=== PATIENT | male | born 1955 | race Hispanic/Latino ===

== ENCOUNTER 2016-08-05 21:27 | Inpatient (IN) | payer MEDICAID, OTHER ==
[2016-08-05 21:27] VITALS: BMI 20.9
[2016-08-05 22:49] LABS: BASO # 0.1 K/uL (0.0-0.2); EOS # 0.1 K/uL (0.0-0.7); EOS % 1.6 % (0.0-4.0); HEMATOCRIT 40.5 % (35.0-51.0); LYMPH # 1.9 K/uL (1.0-4.3); MEAN CELL VOLUME 83.3 fL (80.0-94.0); MEAN CORPUSCULAR HEMOGLOBIN 27.3 pg (27.0-31.0); MEAN CORPUSCULAR HGB CONC 32.7 g/dL (33.0-37.0); MEAN PLATELET VOLUME 8.9 fL (7.2-11.7); MONO # 0.7 K/uL (0.0-0.8); MONO % 9.1 % (0.0-10.0); RED CELL DISTRIBUTION WIDTH 14.4 % (11.5-14.5); WHITE BLOOD COUNT 7.8 K/uL (4.8-10.8)
[2016-08-05 22:57] LABS: CHLORIDE 106 mmol/L (98-107); SODIUM 143 mmol/L (132-148)
[2016-08-05 22:59] LABS: ALB/GLOB RATIO 1.3 (1.0-2.1); ALKALINE PHOSPHATASE 54 U/L (38-126); AST/SGOT 19 U/L (17-59); BILIRUBIN,TOTAL 0.4 mg/dL (0.2-1.3); BLOOD UREA NITROGEN 18 mg/dL (9-20); CARBON DIOXIDE 25 mmol/L (22-30); GFR AFRICAN-AMERICAN 58; TOTAL PROTEIN 7.5 g/dL (6.3-8.3)
[2016-08-05 23:00] LABS: ALCOHOL SERUM < 10 mg/dl (0-10); ALT/SGPT 18 U/L (21-72); CALCIUM 9.2 mg/dl (8.6-10.4); GLUCOSE,RANDOM 82 mg/dL (75-110)
[2016-08-05 23:08] LABS: RBC URINE 4 /hpf (0-3); URINE BILIRUBIN NEGATIVE (NEGATIVE); URINE BLOOD NEGATIVE (NEGATIVE); URINE COLOR Yellow (YELLOW); URINE GLUCOSE (UA) NORMAL (Normal); URINE KETONE NEGATIVE (NEGATIVE); URINE LEUKOCYTE ESTERASE 1+ Leu/uL (Negative); URINE PROTEIN 1+ mg/dL (NEGATIVE); WBC URINE 15 /hpf (0-5)
[2016-08-05 23:14] LABS: URINE BACTERIA FEW (<OCC)
--- NOTE | 2016-08-05 23:20 | C.PDOC ---
History Of Present Illness 61 year old patient presents to the ED requesting detox from alcohol, cocaine, and heroin. He admits his last use of all three was earlier today. Patient is pre-screened. Patient was contacted to come in for admission. He denies any symptoms or medical complaints at this time. Time Seen by Provider: 08/05/16 22:20 Chief Complaint (Nursing): Substance Abuse History Per: Patient History/Exam Limitations: no limitations Onset/Duration Of Symptoms: Other Current Symptoms Are (Timing): Still Present Suicide/Self Injury Attempted (Context): None Modifying Factor(s): Alcohol, Narcotics Severity: None Pain Scale Rating Of: 0 Associated Symptoms: Other Involuntary Hold By: None Recent travel outside of the [place]: No Additional History Per: Patient Past Medical History Reviewed: Historical Data, Nursing Documentation, Vital Signs Vital Signs: Last Vital Signs Temp 97.7 F 08/06/16 02:25 Pulse 70 08/06/16 02:25 Resp 20 08/06/16 02:25 BP 167/105 H 08/06/16 02:25 Pulse Ox 96 08/06/16 02:46 - Medical History PMH: Anemia, Arthritis, Back Problems, HTN, Rheumatoid Arthritis, Chronic Pain - [facility] Procedures DETOXIFICATION SERVICES FOR SUBSTANCE ABUSE TREATMENT (12/19/15) INJECT/INFUSE NEC (07/22/14) PHYSICAL THERAPY NEC (05/05/14) Family History: States: Hypertension - Social History Hx Tobacco Use: Yes Hx Alcohol Use: Yes Hx Substance Use: Yes (cocaine, marijuana, opiates) - Immunization History Hx Tetanus Toxoid Vaccination: No Hx Influenza Vaccination: Yes Hx Pneumococcal Vaccination: Yes Review Of Systems Except As Marked, All Systems Reviewed And Found Negative. Constitutional: Negative for: Fever, Chills Gastrointestinal: Negative for: Vomiting, Abdominal Pain Psych: Negative for: Suicidal ideation Physical Exam - Physical Exam Appears: Non-toxic, No Acute Distress Skin: Warm, Dry Head: Atraumatic, Normacephalic Neck: Normal ROM, Supple Chest: Symmetrical Cardiovascular: Rhythm Regular Respiratory: No Accessory Muscle Use Back: Normal Inspection Extremity: Normal ROM Neurological/Psych: Oriented x3 ED Course And Treatment - Laboratory Results Result Diagrams: 08/05/16 22:43 08/05/16 22:43 O2 Sat by Pulse Oximetry: 96 (RA) Pulse Ox Interpretation: Normal Progress Note: PT IS MEDICALLY CLEARED FOR DETOX ADMISSION. Patient was evaluated by the crisis counselor. He is admitted for detox under Dr. Levin. Disposition - Disposition Disposition: HOSPITALIZED Disposition Time: 01:10 Condition: STABLE - Clinical Impression Clinical Impression: Opiate dependence, Drug dependence - PA / VIOLENT CRIMES DETECTIVE / Resident Statement MD/DO has reviewed & agrees with the documentation as recorded. - Scribe Statement The provider has reviewed the documentation as recorded by the Scribe Charline Mendoza All medical record entries made by the Scribe were at my direction and personally dictated by me. I have reviewed the chart and agree that the record accurately reflects my personal performance of the history, physical exam, medical decision making, and the department course for this patient. I have also personally directed, reviewed, and agree with the discharge instructions and disposition.
[2016-08-06] MEDS ORDERED: Aluminum Hydroxide/Magnesium Hydroxide Susp (30 mL) PO PRN (01:40)
[2016-08-06 06:36] VITALS: RESP 18
[2016-08-06] MEDS ORDERED: Buprenorphine Hydrochloride 2 mg SL ONE ×2 (12:44→14:00)
--- NOTE | 2016-08-06 13:43 | PCM.PSYCH ---
Initial Psychiatric Evaluation - Initial Psychiatric Evaluation Type of Admission: Voluntary Legal Status: Capacity Chief Complaint (in patient's own words): "here for the drinking & heroin" History of Present Illness and Precipitating Events: He is seen with the team, chart reviewed and case discussed. Pt is a 61 y/o M, domiciled alone, unemployed on disability (achilles tendon injured and removed), from , w/ 9 adult children, w/ PMHx of opiod use disorder, EtOH use disorder, cocaine use disorder, and tobacco use disorder here to detox from opiates and alcohol. Pt. admits to snorting 7 to 14 bags of heroin daily for the past 20 years. Pt. also admits to drinking a pint and a half of EtOH daily, as well as smoking an unspecified amount of crack cocaine. Pt. states that 20 years ago he began using hard drugs because of a girl that he was romantically involved with at the time. Pt. attests that this will be his 3rd detox, and also that he has participated in rehab once before at [facility]. Pt. states that he occasionally attended AA and NA meetings. Pt. admits to a PMHx remarkable for HTN, but denies any hx of psychiatric diagnoses. Pt. also denies any family hx of psychiatric diagnoses or substance abuse. Upon discharge, Pt. intends to return to [facility]. Pt is interested to find out whether [facility] provide suboxone treatment, as that is something that he would like to try. Current Medications: Active Medications Generic Name Dose Route Start Last Admin Trade Name Freq PRN Reason Stop Dose Admin Acetaminophen 650 mg 08/06/16 01:48 Tylenol 325mg Tab PO Q4H PRN Pain, moderate (4-7) Al Hydrox/Mg Hydrox/Simethicone 30 ml 08/06/16 01:40 Maalox 30 Ml PO TID PRN Indigestion / Heartburn Buprenorphine HCl 6 mg 08/06/16 14:00 Subutex SL 08/06/16 14:01 ONCE ONE Buprenorphine HCl 0 mg 08/07/16 10:00 Subutex SL 08/10/16 09:59 .TAPER BLANCA Taper Chlordiazepoxide 25 mg 08/06/16 01:38 08/06/16 02:28 Librium PO 25 mg Q4H PRN Administration Alcohol Withdrawal Chlordiazepoxide 25 mg 08/06/16 06:00 08/06/16 12:34 Librium PO 08/10/16 05:59 25 mg Q6 BLANCA Administration Taper Clonidine HCl 0.1 mg 08/06/16 01:40 08/06/16 02:28 Catapres PO 0.1 mg Q8 PRN Administration COWS Score More or Equal to 5 Clonidine HCl 0.3 mg 08/06/16 14:00 08/06/16 13:03 Catapres PO 0.3 mg TID BLANCA Administration Dicyclomine HCl 10 mg 08/06/16 01:43 Bentyl PO Q6 PRN Muscle spasm Gabapentin 100 mg 08/06/16 14:00 08/06/16 13:02 Neurontin PO 100 mg TID BLANCA Administration Hydroxyzine HCl 25 mg 08/06/16 01:43 Atarax PO Q6 PRN Anxiety Loperamide HCl 2 mg 08/06/16 01:40 Imodium PO Q8 PRN Diarrhea Ondansetron HCl 4 mg 08/06/16 01:40 Zofran Tab PO Q8 PRN Nausea/Vomiting Pneumococcal Polyvalent Vaccine 0.5 ml 08/09/16 10:00 Pneumovax 23 Vaccine IM 08/09/16 10:01 .ONCE ONE Trazodone HCl 50 mg 08/06/16 01:38 08/06/16 02:28 Desyrel PO 50 mg HS PRN Administration Insomnia Past Psychiatric History - Past Psychiatric History Pertinent Medical Hx (Current Medical&Sleep Prob, Allergies): Allergies Allergy/AdvReac Type Severity Reaction Status Date / Time No Known Allergies Allergy Verified 12/19/15 19:30 Clonidine 0.3 mg PO 08/05/16 Review of Systems - Constitutional Constitutional: Sweats - Psychiatric Psychiatric: absent: Hallucinations, Suicidal Ideation Mental Status Examination - Personal Presentation Personal Presentation: Looks stated age - Affect Affect: Constricted, Depressed - Motor Activity Motor Activity: Calm - Reliability in Providing Information Reliability in Providing Information: Good - Speech Speech: Organized, Relevant - Mood Mood: Depressed, Anxious - Formal Thought Process Formal Thought Process: No Impairment - Obsessions/Compulsions Obsessions: No Compulsions: No - Cognitive Functions Orientation: Person, Place, Situation, Time Sensorium: Alert Attention/Concentration: Attentive Judgement: Intact, as evidence by: Insight regarding need for hospitalization Memory: Recent intact, as evidence by: Ability to recall events of the day, Remote intact, as evidenced by: Abilit to recall sig. life events - Risk Risk: Seizure, Withdrawal - Strength & Assets Inventory Strength & Assets Inventory: Family support - Limitations Limitations: Living alone DSM 5 DX - DSM 5 DSM 5 Diagnosis: Opioid Withdrawal Alcohol Withdrawal Cocaine Withdrawal Opioid Use Disorder -severe Alcohol Use Disorder -severe Cocaine Use Disorder -severe Tobacco Use Disorder - Recommended/Plan of Treatment Treatment Recommendations and Plan of Treatment: Opioid Withdrawal -suboxone taper -supportive therapy -PRN medications Alcohol Withdrawal -Librium taper -Supportive therapy -PRN medications Cocaine Withdrawal -Gabapentin 100 mg TID -Supportive therapy -PRN medications Opioid Use Disorder -severe -PA for abstinence -Supportive therapy -Group and Individual therapy Alcohol Use Disorder -severe -PA for abstinence -Supportive therapy -Group and Individual therapy Cocaine Use Disorder -severe -PA for abstinence -Supportive therapy -Group and Individual therapy Tobacco Use Disorder -PA for abstinence 33 min Projected ELOS: 4 days Prognosis: good - Smoking Cessation Smoking Cessation Initiated: Yes
[2016-08-07] MEDS: Buprenorphine Hydrochloride 2 mg SL SCH (09:31)
--- NOTE | 2016-08-07 10:08 | CP.PCM.CON ---
Past Patient History - Infectious Disease Hx of Infectious Diseases: None - Past Medical History & Family History Past Medical History?: Yes - Past Social History Smoking Status: Light Smoker < 10 Cigarettes Daily - CARDIAC Hx Hypertension: Yes - PULMONARY Hx Respiratory Disorders: No - NEUROLOGICAL Hx Neurological Disorder: No Hx Seizures: No - HEENT Hx HEENT Problems: No - RENAL Hx Chronic Kidney Disease: No - ENDOCRINE/METABOLIC Hx Endocrine Disorders: No - HEMATOLOGICAL/ONCOLOGICAL Hx Anemia: Yes - INTEGUMENTARY Hx Dermatological Problems: No - MUSCULOSKELETAL/RHEUMATOLOGICAL Hx Arthritis: Yes Hx Rheumatoid Arthritis: Yes - GASTROINTESTINAL Hx Gastrointestinal Disorders: No - GENITOURINARY/GYNECOLOGICAL Hx Genitourinary Disorders: No - PSYCHIATRIC Hx Substance Use: Yes (cocaine, marijuana, opiates) - SURGICAL HISTORY Hx Surgeries: Yes Hx Orthopedic Surgery: Yes (left leg) Other/Comment: no achilles tendon - ANESTHESIA Hx Anesthesia: Yes Hx Anesthesia Reactions: No Meds Allergies/Adverse Reactions: Allergies Allergy/AdvReac Type Severity Reaction Status Date / Time No Known Allergies Allergy Verified 12/19/15 19:30 - Medications Medications: Current Medications Acetaminophen (Tylenol 325mg Tab) 650 mg PO Q4H PRN PRN Reason: Pain, moderate (4-7) Al Hydrox/Mg Hydrox/Simethicone (Maalox 30 Ml) 30 ml PO TID PRN PRN Reason: Indigestion / Heartburn Buprenorphine HCl (Subutex) 6 mg SL DAILY [facility] PRN Reason: Taper Stop: 08/10/16 09:59 Last Admin: 08/07/16 09:31 Dose: 6 mg Chlordiazepoxide (Librium) 25 mg PO Q4H PRN PRN Reason: Alcohol Withdrawal Last Admin: 08/06/16 02:28 Dose: 25 mg Chlordiazepoxide (Librium) 25 mg PO TID BLANCA PRN Reason: Taper Stop: 08/10/16 05:59 Last Admin: 08/07/16 09:31 Dose: 25 mg Clonidine HCl (Catapres) 0.1 mg PO Q8 PRN PRN Reason: COWS Score More or Equal to 5 Last Admin: 08/06/16 02:28 Dose: 0.1 mg Clonidine HCl (Catapres) 0.3 mg PO TID [facility] Last Admin: 08/07/16 09:36 Dose: Not Given Dicyclomine HCl (Bentyl) 10 mg PO Q6 PRN PRN Reason: Muscle spasm Gabapentin (Neurontin) 100 mg PO TID BLANCA Last Admin: 08/07/16 09:31 Dose: 100 mg Hydroxyzine HCl (Atarax) 25 mg PO Q6 PRN PRN Reason: Anxiety Loperamide HCl (Imodium) 2 mg PO Q8 PRN PRN Reason: Diarrhea Ondansetron HCl (Zofran Tab) 4 mg PO Q8 PRN PRN Reason: Nausea/Vomiting Pneumococcal Polyvalent Vaccine (Pneumovax 23 Vaccine) 0.5 ml IM .ONCE ONE Stop: 08/09/16 10:01 Trazodone HCl (Desyrel) 50 mg PO HS PRN PRN Reason: Insomnia Last Admin: 08/06/16 22:44 Dose: 50 mg Results - Vital Signs Recent Vital Signs: Last Vital Signs Temp 98.7 F 08/07/16 09:00 Pulse 50 L 08/07/16 09:00 Resp 18 08/07/16 09:00 BP 144/88 08/07/16 09:00 Pulse Ox 98 08/07/16 09:00 - Labs Result Diagrams: 08/05/16 22:43 08/05/16 22:43
--- NOTE | 2016-08-07 13:57 | PCM.PYCHPN ---
Psychiatric Progress Note - Psychiatric Progress Note Patient seen today, length of contact: 17 min Patient Chief Complaint: "I had diarrhea and nausea last night" Problems Identified/Issues Discussed: Pt. seen, chart reviewed, and discussed w/ team. Pt. reports a positive mood and a good appetite. Pt. admits to chills, diarrhea , and vomiting last night, but feels better now. Pt. continues to improve. After care was discussed, and Pt. is interested in participating in a 28-day rehab program - or IOP at [facility]. VT used, support given Medicine is consulted for low pulse and his rx of very high dose clonidine, 0.3 TID Medication Change: Yes (detox changes daily) Medical Record Reviewed: Yes Mental Status Examination - Cognitive Function Orientation: Person, Place, Situation, Time Memory: Intact Attention: WNL Concentration: WNL Association: WNL Fund of Knowledge: WNL - Mood Mood: Anxious - Affect Affect: Constricted, Depressed - Speech Speech: Appropriate - Formal Thought Process Formal Thought Process: No Impairment - Suicidal Ideation Suicidal Ideation: No - Homicidal Ideation Homicidal Ideation: No Goal/Treatment Plan - Goal/Treatment Plan Need for Continued Stay: Discharge may exacerbated symptoms Progress Toward Problem(s) and Goals/Treatment Plan: Opioid Withdrawal -suboxone taper -supportive therapy -PRN medications Alcohol Withdrawal -Librium taper -Supportive therapy -PRN medications Cocaine Withdrawal -Gabapentin 100 mg TID -Supportive therapy -PRN medications Opioid Use Disorder -severe -VT for abstinence -Supportive therapy -Group and Individual therapy Alcohol Use Disorder -severe -VT for abstinence -Supportive therapy -Group and Individual therapy Cocaine Use Disorder -severe -VT for abstinence -Supportive therapy -Group and Individual therapy Tobacco Use Disorder -VT for abstinence Estimated Date of D/C: 08/09/16 - Smoking Cessation Smoking Cessation Initiated: Yes
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
[2016-08-08] MEDS: Buprenorphine Hydrochloride 2 mg SL SCH ×2 (12:07→12:42)
--- NOTE | 2016-08-08 14:56 | PCM.PYCHPN ---
Psychiatric Progress Note - Psychiatric Progress Note Patient seen today, length of contact: 10 Patient Chief Complaint: "I feel dizzy" Problems Identified/Issues Discussed: Pt. seen, chart reviewed, and discussed w/ team. Pt. seen in bed. When asked to sit up, Pt. reports feeling dizzy and ill.Pt. appears somnolent and weak. Pt. is AAOx3 and does not exhibit increased tremors. Medicine was consulted for dizziness. Support given. Medication Change: Yes (detox changes daily) Medical Record Reviewed: Yes Mental Status Examination - Cognitive Function Orientation: Person, Place, Situation, Time Memory: Intact Attention: WNL Concentration: WNL Association: WNL Fund of Knowledge: WNL - Mood Mood: Anxious - Affect Affect: Constricted, Depressed - Speech Speech: Appropriate - Formal Thought Process Formal Thought Process: No Impairment - Suicidal Ideation Suicidal Ideation: No - Homicidal Ideation Homicidal Ideation: No Goal/Treatment Plan - Goal/Treatment Plan Need for Continued Stay: Discharge may exacerbated symptoms Progress Toward Problem(s) and Goals/Treatment Plan: Opioid Withdrawal -suboxone taper -supportive therapy -PRN medications Alcohol Withdrawal -Librium taper -Supportive therapy -PRN medications Dizziness secondary to Hypotension vs. Opioid Withdrawal -medicine consulted Cocaine Withdrawal -Gabapentin 100 mg TID -Supportive therapy -PRN medications Opioid Use Disorder -severe -DC for abstinence -Supportive therapy -Group and Individual therapy Alcohol Use Disorder -severe -DC for abstinence -Supportive therapy -Group and Individual therapy Cocaine Use Disorder -severe -DC for abstinence -Supportive therapy -Group and Individual therapy Tobacco Use Disorder -DC for abstinence Estimated Date of D/C: 08/09/16
--- NOTE | 2016-08-08 15:13 | CT ---
PROCEDURE: CT HEAD WITHOUT CONTRAST. HISTORY: dizziness, headache COMPARISON: None available. TECHNIQUE: Axial computed tomography images were obtained through the head/brain without intravenous contrast. Radiation dose: Total exam DLP = 895.0 mGy-cm. This CT exam was performed using one or more of the following dose reduction techniques: Automated exposure control, adjustment of the mA and/or kV according to patient size, and/or use of iterative reconstruction technique. FINDINGS: HEMORRHAGE: No acute parenchymal, subarachnoid or extra-axial hemorrhage. BRAIN: Localized area of encephalomalacia right inferior frontal pole consistent with old posttraumatic sequela. Clinic correlation with history recommended. There appears to be some minor periventricular and scattered subcortical white matter ischemic changes. VENTRICLES: Unremarkable. No hydrocephalus. CALVARIUM: No acute calvarial fractures however there does appear to be old fracture posterior aspect left lamina papyracea. PARANASAL SINUSES: There appears to be subtotal opacification superior aspect right maxillary antrum. Mild mucosal thickening also seen within several ethmoid air cells. Minimal mucosal thickening sphenoid sinus. MASTOID AIR CELLS: Unremarkable as visualized. No inflammatory changes. OTHER FINDINGS: None. IMPRESSION: No acute intracranial hemorrhage. Focal area of cystic encephalomalacia right history fall all consistent with sequela of old trauma. Clinic correlation with history recommended. There appears to be minor chronic periventricular and scattered subcortical white matter ischemic changes.
--- NOTE | 2016-08-08 23:27 | CP.PCM.PN ---
<Rakesh Gabriel - Last Filed: 08/08/16 23:27> Subjective - Date & Time of Evaluation Date of Evaluation: 08/08/16 Time of Evaluation: 09:04 - Subjective Subjective: Pt seen and examined. Pt complaining of dizziness and weakness. Pt denies fever , chills, chest pain, shortness of breath, nausea. Objective - Vital Signs/Intake and Output Vital Signs (last 24 hours): Temp Pulse Resp BP Pulse Ox 97.6 F 72 18 129/87 97 08/08/16 21:08 08/08/16 21:08 08/08/16 21:08 08/08/16 21:08 08/08/16 21:08 - Medications Medications: Current Medications Acetaminophen (Tylenol 325mg Tab) 650 mg PO Q4H PRN PRN Reason: Pain, moderate (4-7) Al Hydrox/Mg Hydrox/Simethicone (Maalox 30 Ml) 30 ml PO TID PRN PRN Reason: Indigestion / Heartburn Amlodipine Besylate (Norvasc) 5 mg PO DAILY [facility] Last Admin: 08/08/16 09:29 Dose: 5 mg Buprenorphine HCl (Subutex) 4 mg SL DAILY [facility] PRN Reason: Taper Stop: 08/10/16 09:59 Last Admin: 08/08/16 12:42 Dose: 4 mg Chlordiazepoxide (Librium) 25 mg PO Q4H PRN PRN Reason: Alcohol Withdrawal Last Admin: 08/07/16 23:54 Dose: 25 mg Chlordiazepoxide (Librium) 25 mg PO BID [facility] PRN Reason: Taper Stop: 08/10/16 05:59 Last Admin: 08/08/16 17:43 Dose: 25 mg Clonidine HCl (Catapres) 0.1 mg PO Q8 [facility] Last Admin: 08/08/16 21:08 Dose: 0.1 mg Dicyclomine HCl (Bentyl) 10 mg PO Q6 PRN PRN Reason: Muscle spasm Gabapentin (Neurontin) 100 mg PO TID [facility] Last Admin: 08/08/16 20:11 Dose: 100 mg Hydroxyzine HCl (Atarax) 25 mg PO Q6 PRN PRN Reason: Anxiety Last Admin: 08/07/16 19:34 Dose: 25 mg Lisinopril (Zestril) 5 mg PO DAILY [facility] Last Admin: 08/08/16 09:29 Dose: 5 mg Loperamide HCl (Imodium) 2 mg PO Q8 PRN PRN Reason: Diarrhea Ondansetron HCl (Zofran Tab) 4 mg PO Q8 PRN PRN Reason: Nausea/Vomiting Pneumococcal Polyvalent Vaccine (Pneumovax 23 Vaccine) 0.5 ml IM .ONCE ONE Stop: 08/09/16 10:01 Trazodone HCl (Desyrel) 50 mg PO HS PRN PRN Reason: Insomnia Last Admin: 08/08/16 21:08 Dose: 50 mg - Constitutional Appears: No Acute Distress - Head Exam Head Exam: ATRAUMATIC, NORMOCEPHALIC - Eye Exam Eye Exam: EOMI, PERRL - ENT Exam ENT Exam: Mucous Membranes Moist. absent: Mucous Membranes Dry - Respiratory Exam Respiratory Exam: Clear to Ausculation Bilateral. absent: Rales, Rhonchi, Wheezes - Cardiovascular Exam Cardiovascular Exam: +S1, +S2 - GI/Abdominal Exam GI & Abdominal Exam: Soft. absent: Tenderness - Extremities Exam Extremities Exam: Full ROM. absent: Pedal Edema - Neurological Exam Neurological Exam: Alert, Awake, Oriented x3 - Psychiatric Exam Psychiatric exam: Normal Affect, Normal Mood - Skin Skin Exam: Normal Color, Warm Assessment and Plan - Assessment and Plan (Free Text) Assessment: HTN: Clonidine 0.1 mg PO q8h Norvasc 5 mg PO daily Zestril 5 mg po qd Dizziness: Head CT- no acute intracranial hemorrhage; focal area of cystic encephalomalacia (please see full report) Opioid Withdrawal: subutex taper supportive therapy PRN medications Alcohol Withdrawal: Librium taper Supportive therapy PRN medications Management as per psych Cocaine Withdrawal: Gabapentin 100 mg TID Supportive therapy PRN medications Opioid Use Disorder: LA for abstinence Supportive therapy Group and Individual therapy Alcohol Use Disorder LA for abstinence Supportive therapy Group and Individual therapy Cocaine Use Disorder LA for abstinence Supportive therapy Group and Individual therapy Tobacco Use Disorder LA for abstinence Prophylactic Measures Zofran PRN Tylenol PRN Fall precautions <Tristen Gonzalez H - Last Filed: 08/09/16 07:22> Objective - Vital Signs/Intake and Output Vital Signs (last 24 hours): Temp Pulse Resp BP Pulse Ox 97.6 F 65 18 119/66 97 08/09/16 06:12 08/09/16 06:12 08/09/16 06:12 08/09/16 06:12 08/09/16 06:12 - Medications Medications: Current Medications Acetaminophen (Tylenol 325mg Tab) 650 mg PO Q4H PRN PRN Reason: Pain, moderate (4-7) Al Hydrox/Mg Hydrox/Simethicone (Maalox 30 Ml) 30 ml PO TID PRN PRN Reason: Indigestion / Heartburn Amlodipine Besylate (Norvasc) 5 mg PO DAILY [facility] Last Admin: 08/08/16 09:29 Dose: 5 mg Buprenorphine HCl (Subutex) 4 mg SL DAILY [facility] PRN Reason: Taper Stop: 08/10/16 09:59 Last Admin: 08/08/16 12:42 Dose: 4 mg Chlordiazepoxide (Librium) 25 mg PO Q4H PRN PRN Reason: Alcohol Withdrawal Last Admin: 08/07/16 23:54 Dose: 25 mg Chlordiazepoxide (Librium) 25 mg PO DAILY [facility] PRN Reason: Taper Stop: 08/10/16 05:59 Last Admin: 08/08/16 17:43 Dose: 25 mg Clonidine HCl (Catapres) 0.1 mg PO Q8 [facility] Last Admin: 08/09/16 06:05 Dose: Not Given Dicyclomine HCl (Bentyl) 10 mg PO Q6 PRN PRN Reason: Muscle spasm Gabapentin (Neurontin) 100 mg PO TID [facility] Last Admin: 08/08/16 20:11 Dose: 100 mg Hydroxyzine HCl (Atarax) 25 mg PO Q6 PRN PRN Reason: Anxiety Last Admin: 08/07/16 19:34 Dose: 25 mg Lisinopril (Zestril) 5 mg PO DAILY [facility] Last Admin: 08/08/16 09:29 Dose: 5 mg Loperamide HCl (Imodium) 2 mg PO Q8 PRN PRN Reason: Diarrhea Ondansetron HCl (Zofran Tab) 4 mg PO Q8 PRN PRN Reason: Nausea/Vomiting Pneumococcal Polyvalent Vaccine (Pneumovax 23 Vaccine) 0.5 ml IM .ONCE ONE Stop: 08/09/16 10:01 Trazodone HCl (Desyrel) 50 mg PO HS PRN PRN Reason: Insomnia Last Admin: 08/08/16 21:08 Dose: 50 mg Attending/Attestation - Attestation I have personally seen and examined this patient.: Yes I have fully participated in the care of the patient.: Yes I have reviewed all pertinent clinical information, including history, physical exam and plan: Yes Notes (Text): Medical attending: Patient was seen and examined by me, agrees the above note by emergency medical dispatcher. The patient's blood pressure was not as elevated as it was previously, he is currently getting smaller dose of clonidine as well as an additional dose of amlodipine. Today I was notified that the patient appeared to be drowsy more sleepy than previous. He was not as interactive as the other day. The staff was concerned that there might be some alteration of his mental status. We ordered a CT scan of the head later on in the afternoon. It may be due to still going through a lot of withdrawal from heroin and cocaine use thank you Tristen Gonzalez
[2016-08-09 08:00] LABS: BASO % 0.5 % (0.0-2.0); EOS # 0.2 K/uL (0.0-0.7); EOS % 2.6 % (0.0-4.0); HEMATOCRIT 37.7 % (35.0-51.0); LYMPH # 1.9 K/uL (1.0-4.3); LYMPH % 30.8 % (20.0-40.0); MEAN CELL VOLUME 83.8 fL (80.0-94.0); MEAN CORPUSCULAR HEMOGLOBIN 26.9 pg (27.0-31.0); MEAN CORPUSCULAR HGB CONC 32.1 g/dL (33.0-37.0); MEAN PLATELET VOLUME 9.7 fL (7.2-11.7); MONO # 0.6 K/uL (0.0-0.8); RED CELL DISTRIBUTION WIDTH 14.6 % (11.5-14.5); WHITE BLOOD COUNT 6.2 K/uL (4.8-10.8)
[2016-08-09 08:27] LABS: CHLORIDE 105 mmol/L (98-107)
[2016-08-09 08:28] LABS: POTASSIUM 3.7 mmol/L (3.6-5.2); SODIUM 140 mmol/L (132-148)
[2016-08-09 08:30] LABS: ALB/GLOB RATIO 1.2 (1.0-2.1); ALKALINE PHOSPHATASE 52 U/L (38-126); ALT/SGPT 16 U/L (21-72); AST/SGOT 15 U/L (17-59); BILIRUBIN,TOTAL < 0.1 mg/dL (0.2-1.3); BLOOD UREA NITROGEN 21 mg/dL (9-20); CARBON DIOXIDE 26 mmol/L (22-30); GFR AFRICAN-AMERICAN > 60; TOTAL PROTEIN 6.1 g/dL (6.3-8.3)
[2016-08-09 08:31] LABS: CALCIUM 8.4 mg/dl (8.6-10.4); GLUCOSE,RANDOM 115 mg/dL (75-110); MAGNESIUM 2.1 mg/dL (1.6-2.3); PHOSPHOROUS 2.4 mg/dL (2.5-4.5)
--- NOTE | 2016-08-09 08:59 | PCM.PYCHDC ---
Mental Status Examination - Mental Status Examination Orientation: Person, Place, Situation, Time Memory: Impaired Mood: Anxious Affect: Broad Speech: Appropriate Attention: WNL Concentration: Poor Association: WNL Fund of Knowledge: WNL Formal Thought Process: No Impairment Suicidal Ideation: No Current Homicidal Ideation?: No Discharge Summary - Discharge Note Reason for Hospitalization: Alcohol and heroin detox. Laboratory Data: Abnormal Lab Results 08/09/16 07:43 WBC 6.2 RBC 4.50 Hgb 12.1 Hct 37.7 MCV 83.8 MCH 26.9 L MCHC 32.1 L RDW 14.6 H Plt Count 164 MPV 9.7 Neut % (Auto) 56.1 Lymph % (Auto) 30.8 Bureau % (Auto) 10.0 Eos % (Auto) 2.6 Baso % (Auto) 0.5 Neut # 3.5 Lymph # 1.9 Bureau # 0.6 Eos # 0.2 Baso # 0.0 Consultations:: List each consultation separately and include: 1. Reason for request. 2. Findings. 3. Follow-up Consultations: Medicine for HTN - help appreciated Summary of Hospital Course include:: 1. Description of specific treatment plan utilized for patients during their course of treatmen. 2. Summarize the time- course for resolution of acute symptoms and/or regressed behaviors. 3. Describe issues identified and worked on during hospitalization. 4. Describe medication utilized. 5. Describe medical problems identified and treated. 6. Reassessment of suicide risk Summary of Hospital Course: He is seen with the team, chart reviewed and case discussed. On admission: Pt is a 61 y/o M, domiciled alone, unemployed on disability (achilles tendon injured and removed), from , w/ 9 adult children, w/ PMHx of opiod use disorder, EtOH use disorder, cocaine use disorder, and tobacco use disorder here to detox from opiates and alcohol. Pt. admits to snorting 7 to 14 bags of heroin daily for the past 20 years. Pt. also admits to drinking a pint and a half of EtOH daily, as well as smoking an unspecified amount of crack cocaine. Pt. states that 20 years ago he began using hard drugs because of a girl that he was romantically involved with at the time. Pt. attests that this will be his 3rd detox, and also that he has participated in rehab once before at [facility]. Pt. states that he occasionally attended AA and NA meetings. Pt. admits to a PMHx remarkable for HTN, but denies any hx of psychiatric diagnoses. Pt. also denies any family hx of psychiatric diagnoses or substance abuse. Upon discharge, Pt. intends to return to [facility]. Pt is interested to find out whether [facility] provide suboxone treatment, as that is something that he would like to try. Hospital course: The pt was admitted and started on treatment with psychotherapy, support, psychoeducation and medications. AL and CBT used. The pt attended groups and activities, as well as milieu therapy. All the risks and benefits of medications are discussed and the patient understood and agreed. Medicine has also seen the pt and lowered his extremely high dose clonidine and added 2 meds. He got dizzy but improved quickly. After care discussed with the patient. - Final Diagnosis (DSM 5) Condition upon Discharge: STABLE DSM 5: Opioid Withdrawal Alcohol Withdrawal Cocaine Withdrawal Opioid Use Disorder -severe Alcohol Use Disorder -severe Cocaine Use Disorder -severe Tobacco Use Disorder Disposition: HOME/ ROUTINE Follow-up Treatment Plan: Continue below medications after discharge. Follow after care plan as discussed: [facility] Use relapse prevention skills Return to ER or call 911 if suicidal, homicidal or symptoms relapse. Stay away from stress, alcohol and drugs. Prescriptions/Medication Reconciliation: cloNIDine [Catapres] 0.1 mg PO Q8 #90 tab traZODone [Desyrel] 50 mg PO HS PRN #30 tab PRN Reason: Insomnia amLODIPine [Norvasc] 5 mg PO DAILY #30 tab Lisinopril [Zestril] 5 mg PO DAILY #30 tab - Smoking Cessation Smoking Cessation Medication prescribed: No - Antipsychotic Medications Pt discharged on 2 or more routine antipsychotic medications: No
[2016-08-09 09:13] VITALS: BP 141/88; PULSE 66; TEMP 98; O2SAT 96
[2016-08-09] MEDS: Buprenorphine Hydrochloride 2 mg SL SCH (09:42)
[2016-08-09] MEDS ORDERED: Pneumococcal 23-Valent Vaccine IM ONE (10:00)
--- NOTE | 2016-08-09 13:11 | CP.PCM.PN ---
<Rakesh Gabriel - Last Filed: 08/09/16 13:03> Subjective - Date & Time of Evaluation Date of Evaluation: 08/09/16 Time of Evaluation: 07:05 - Subjective Subjective: Pt seen and examined. Pt reports that he is feeling better today and is much less dizzy. Pt denies fever, chills, chest pain, shortness of breath, nausea, and vomiting. Objective - Vital Signs/Intake and Output Vital Signs (last 24 hours): Temp Pulse Resp BP Pulse Ox 98 F 66 18 141/88 96 08/09/16 09:12 08/09/16 09:12 08/09/16 09:12 08/09/16 09:12 08/09/16 09:12 - Labs Labs: 08/09/16 07:43 08/09/16 07:43 - Constitutional Appears: No Acute Distress - Head Exam Head Exam: ATRAUMATIC, NORMOCEPHALIC - Eye Exam Eye Exam: EOMI, PERRL - ENT Exam ENT Exam: Mucous Membranes Moist. absent: Mucous Membranes Dry - Neck Exam Neck Exam: Full ROM. absent: Lymphadenopathy - Cardiovascular Exam Cardiovascular Exam: +S1, +S2. absent: Gallop, Rubs - GI/Abdominal Exam GI & Abdominal Exam: Soft. absent: Distended, Tenderness - Extremities Exam Extremities Exam: Full ROM. absent: Pedal Edema - Neurological Exam Neurological Exam: Alert, Awake, Oriented x3 - Psychiatric Exam Psychiatric exam: Normal Affect, Normal Mood - Skin Skin Exam: Normal Color, Warm Assessment and Plan - Assessment and Plan (Free Text) Assessment: HTN: Pt's bp is stable on current regimen Clonidine 0.1 mg PO q8h Norvasc 5 mg PO daily Zestril 5 mg po qd Dizziness: Head CT- no acute intracranial hemorrhage; focal area of cystic encephalomalacia (please see full report) Opioid Withdrawal: subutex taper supportive therapy PRN medications Alcohol Withdrawal: Librium taper Supportive therapy PRN medications Management as per psych Cocaine Withdrawal: Gabapentin 100 mg TID Supportive therapy PRN medications Opioid Use Disorder: IN for abstinence Supportive therapy Group and Individual therapy Alcohol Use Disorder IN for abstinence Supportive therapy Group and Individual therapy Cocaine Use Disorder IN for abstinence Supportive therapy Group and Individual therapy Tobacco Use Disorder IN for abstinence Prophylactic Measures Zofran PRN Tylenol PRN Fall precautions Medicine signing off. Thank you for this interesting consult. Please reconsult if necessary. <Tristen Gonzalez - Last Filed: 08/09/16 15:48> Objective - Vital Signs/Intake and Output Vital Signs (last 24 hours): Temp Pulse Resp BP Pulse Ox 98 F 66 18 141/88 96 08/09/16 09:12 08/09/16 09:12 08/09/16 09:12 08/09/16 09:12 08/09/16 09:12 - Labs Labs: 08/09/16 07:43 08/09/16 07:43 Attending/Attestation - Attestation I have personally seen and examined this patient.: Yes I have fully participated in the care of the patient.: Yes I have reviewed all pertinent clinical information, including history, physical exam and plan: Yes Notes (Text): Medical attending: Patient was seen and examined by me. Agree with the above note by the resident. The patient had a CT scan of the head yesterday after staff noted he appeared leathergic and confused and not moving from his bead. There was no acute iscemic infarction or bleeding. Likley it was from withdrawal The patient needs to avoid polysubtance abuse and before he left I also discussed with him about this. I hope he takes our advice earnestly thank you Tristen Gonzalez
--- NOTE | 2016-08-12 18:12 | CARD ---
APPROVED REPORT EKG Measurement Heart [id number] <Conclusion> Sinus bradycardia Otherwise normal ECG
--- NOTE | 2016-08-19 23:22 | CARD ---
APPROVED REPORT EKG Measurement Heart [id number] <Conclusion> Sinus bradycardia Minimal voltage criteria for LVH, may be normal variant Nonspecific T wave abnormality Abnormal ECG
== END 2016-08-09 11:00 | disposition home or self-care (01) | DRG 745 ==
LOC: C.ER 21:27 → C.7D 08-06 00:07
PROVIDERS: ADMIT Psychiatry & Neurology Psychiatry; ATTEND Psychiatry & Neurology Psychiatry
PROC: HZ59ZZZ Individual Psychotherapy for Substance Abuse Treatment, Supportive (ICD-10-PCS; principal; 2016-08-06)
PROC: HZ2ZZZZ Detoxification Services for Substance Abuse Treatment (ICD-10-PCS; 2016-08-06)
PROC: HZ46ZZZ Group Counseling for Substance Abuse Treatment, Psychoeducation (ICD-10-PCS; 2016-08-06)
DX: F11.23 Opioid dependence with withdrawal (principal); I95.9 Hypotension, unspecified; F10.230 Alcohol dependence with withdrawal, uncomplicated; F14.23 Cocaine dependence with withdrawal; F17.200 Nicotine dependence, unspecified, uncomplicated; I10 Essential (primary) hypertension; D64.9 Anemia, unspecified; M19.90 Unspecified osteoarthritis, unspecified site; M06.9 Rheumatoid arthritis, unspecified; Y90.0 Blood alcohol level of less than 20 mg/100 ml

== ENCOUNTER 2017-03-29 13:44 | Inpatient (IN) | payer MEDICAID, OTHER ==
--- NOTE | 2017-03-29 14:04 | C.PDOC ---
History Of Present Illness Patient sent from [facility] for alcohol detox admission. Patient has no physical complaints, but admits his pressure is currently high and that he did not take his clonidine 0.3mg today. Patient was medically cleared at prior hospital, and accepted for detox admission by our psychiatrist. Also admits to daily cocaine use. Time Seen by Provider: 03/29/17 13:47 Chief Complaint (Nursing): Substance Abuse History Per: Patient, Other (prior redords from [place]) History/Exam Limitations: no limitations Current Symptoms Are (Timing): Gone Modifying Factor(s): Alcohol Severity: Moderate Associated Symptoms: denies: Suicidal Thoughts Past Medical History Reviewed: Historical Data, Nursing Documentation, Vital Signs Vital Signs: Last Vital Signs Temp 99 F 03/29/17 13:56 Pulse 69 03/29/17 13:56 Resp 18 03/29/17 13:56 BP 201/109 H 03/29/17 13:56 Pulse Ox 98 03/29/17 14:07 - Medical History PMH: Anemia, Arthritis, Back Problems, HTN, Rheumatoid Arthritis, Chronic Pain - [facility] Procedures DETOXIFICATION SERVICES FOR SUBSTANCE ABUSE TREATMENT (08/06/16) GROUP MANAGER OF MAINTENANCE FOR SUBSTANCE ABUSE TREATMENT, PSYCHOEDUCATION (08/06/16) INDIV PSYCHOTHERAPY FOR SUBSTANCE ABUSE TREATMENT, SUPPORT (08/06/16) INJECT/INFUSE NEC (07/22/14) PHYSICAL THERAPY NEC (05/05/14) Family History: States: Hypertension - Social History Hx Tobacco Use: Yes Hx Alcohol Use: Yes Hx Substance Use: Yes (cocaine, marijuana, opiates) - Immunization History Hx Tetanus Toxoid Vaccination: No Hx Influenza Vaccination: Yes Hx Pneumococcal Vaccination: Yes Review Of Systems Except As Marked, All Systems Reviewed And Found Negative. Constitutional: Negative for: Fever Cardiovascular: Negative for: Chest Pain, Palpitations Respiratory: Negative for: Shortness of Breath Gastrointestinal: Negative for: Nausea, Vomiting, Abdominal Pain, Diarrhea Neurological: Negative for: Headache, Dizziness Psych: Positive for: Other (alcohol dependence ). Negative for: Suicidal ideation Physical Exam - Physical Exam Appears: Well, Non-toxic, No Acute Distress Skin: Normal Color, Warm, Dry Head: Atraumatic, Normacephalic Oral Mucosa: Moist Cardiovascular: Rhythm Regular Respiratory: Normal Breath Sounds, No Rales, No Rhonchi, No Wheezing Gastrointestinal/Abdominal: Normal Exam, Bowel Sounds, Soft, No Tenderness Extremity: Normal ROM Extremity: Bilateral: Atraumatic, Normal Color And Temperature, Normal ROM Neurological/Psych: Oriented x3, Other (no tremors) ED Course And Treatment O2 Sat by Pulse Oximetry: 98 (RA) Pulse Ox Interpretation: Normal Progress Note: Patient given his daily dose of Clonidine 0.3mg. Will be admitted for alcohol detox. Disposition - Disposition Forms: [employer] ([facility])
[2017-03-29 14:07] VITALS: BMI 20.9
--- NOTE | 2017-03-29 16:35 | PCM.BM ---
<Nia Guerra - Last Filed: 03/29/17 16:32> Treatment Plan Problems - Problems identified on initial assessmt Alcohol dependence Date Initiated: 03/29/17 Time Initiated: 16:15 Assessment reference: NA Status: Active Treatment assets and liabiliti Patient Assests: cooperative, ADL independent, negotiates basic needs Patient Liabilities: substance abuse - Milieu Protocol Maintain good personal hygiene: daily Encourage regular showers, daily Remind patient to perform daily oral care, daily Assist patient to perform ADL's Conduct patient checks and document Observation sheet: Q15 minutes Maintain personal safety: every shift Educate patient to report safety concerns to staff, every shift Monitor environment for contraband/sharps Medication safety: Monitor for expected outcome, potential side effects: every shift, Assess barriers to learning: every shift, Assess readiness for medication education: every shift <Ld Mcmullen - Last Filed: 03/30/17 20:02> - Diagnosis (1) Opioid use disorder, severe, dependence Status: Acute Interventions: 03/30/17 20:02 Assess 7x/week regarding severity of withdrawal Educate regarding risks, benefits, side effects and alternatives of medications Use Motivational Interviewing for abstinence Use CBT for relapse prevention Medication management for withdrawal symptoms Encourage medication assisted treatment (2) Alcohol use disorder, severe, dependence Status: Acute Interventions: 03/30/17 20:03 Assess 7x/week regarding severity of withdrawal Educate regarding risks, benefits, side effects and alternatives of medications Use Motivational Interviewing for abstinence Use CBT for relapse prevention Medication management for withdrawal symptoms Encourage medication assisted treatment (3) Cocaine use disorder, mild, abuse Status: Acute Interventions: 03/30/17 20:03 Assess 7x/week regarding severity of withdrawal Educate regarding risks, benefits, side effects and alternatives of medications Use Motivational Interviewing for abstinence Use CBT for relapse prevention Medication management for withdrawal symptoms Encourage medication assisted treatment <Andree Rice - Last Filed: 04/01/17 11:32> Family Contact Family involvement: Famliy/SO not involved Family contact: Patient declines to allow family contact at present - Goals for Treatment Patient goals for treatment: Complete detox and apply for [facility].
[2017-03-29] MEDS ORDERED: Pneumococcal 23-Valent Vaccine IM ONE (17:11)
[2017-03-29] MEDS ORDERED: Buprenorphine Hydrochloride 2 mg SL ONE ×2 (21:26→22:28)
[2017-03-30] MEDS ORDERED: Aluminum Hydroxide/Magnesium Hydroxide Susp (30 mL) PO PRN (00:16)
[2017-03-30] MEDS: Buprenorphine Hydrochloride 2 mg SL SCH (09:04)
[2017-03-30] MEDS ORDERED: Bacitracin 500 Units/gm Oint Foilpak UD TOP PRN (10:57)
--- NOTE | 2017-03-30 20:13 | PCM.PSYCH ---
Initial Psychiatric Evaluation - Initial Psychiatric Evaluation Type of Admission: Voluntary Legal Status: Capacity Chief Complaint (in patient's own words): I am here for the treatment of my substance use. History of Present Illness and Precipitating Events: Patient is a 61 years old, , on disability, male with no previous psychiatric history was admitted for retreatment of withdrawing from heroin, alcohol and cocaine. Patient reported started using heroin 25 years ago increase gradually up to about 14 bags daily, sniffing. Currently using 7-8 packs daily. History of 3 previous detox at [facility] and [facility] rehab. His last use of heroin was 2 days ago. Longest period of abstinence was 6 month in 2012 when patient was in rehab. Patient was in [facility] rehab. Also started drinking alcohol at 9 years of age, increase gradually up to half to 2 pints of hard liquor daily. Last use reported Friday. Longest period of abstinence was 6 months in 2012. Also started using cocaine at 21 years of age. Was using $20 of cocaine daily, smoking. Last use was 2 days ago. Also smoking 1 pack of cigarettes daily and wants nicotine patch. Patient was born in [place], has seventh grade of education, not working since 1997, on disability. Was driving a delivery truck. He is and has 9 grownup children from one . Patient lives with his sister. Patient has history of shoplifting and was arrested in the past. Patient has hypertension. Current Medications: Active Medications Generic Name Dose Route Start Last Admin Trade Name Freq PRN Reason Stop Dose Admin Al Hydrox/Mg Hydrox/Simethicone 30 ml 03/30/17 00:16 Maalox 30 Ml PO TID PRN Indigestion / Heartburn Amlodipine Besylate 5 mg 03/30/17 10:00 03/30/17 09:04 Norvasc PO 5 mg DAILY BLANCA Administration Bacitracin 1 ea 03/30/17 10:57 03/30/17 11:23 Bacitracin TOP 1 ea BID PRN Administration apply to affected area Buprenorphine HCl 8 mg 03/30/17 10:00 03/30/17 09:04 Subutex SL 04/03/17 09:59 8 mg DAILY BLANCA Administration Taper Chlordiazepoxide 25 mg 03/30/17 18:00 03/30/17 17:55 Librium PO 04/03/17 17:59 25 mg Q6 BLANCA Administration Taper Chlordiazepoxide 25 mg 03/30/17 14:20 Librium PO Q4H PRN Alcohol Withdrawal Clonidine HCl 0.1 mg 03/30/17 00:16 03/30/17 12:55 Catapres PO 0.1 mg Q8 PRN Administration COWS Score More or Equal to 5 Loperamide HCl 2 mg 03/30/17 00:16 Imodium PO Q8 PRN Diarrhea Ondansetron HCl 4 mg 03/30/17 00:16 Zofran Tab PO Q8 PRN Nausea/Vomiting Pneumococcal Polyvalent Vaccine 0.5 ml 04/01/17 10:00 Pneumovax 23 Vaccine IM 04/01/17 10:01 .ONCE ONE Hypertension Past Psychiatric History - Past Psychiatric History Previous Treatment History: Inpatient Prior Professional Help: Inpatient admission [facility]: [facility] History of Abuse: None reported History of ETOH/Drug Use: See HPI History of Family Illness: None reported Pertinent Medical Hx (Current Medical&Sleep Prob, Allergies): Allergies Allergy/AdvReac Type Severity Reaction Status Date / Time No Known Allergies Allergy Verified 08/10/16 17:11 Lisinopril [Zestril] 5 mg PO DAILY #30 tab 08/09/16 amLODIPine [Norvasc] 5 mg PO DAILY #30 tab 08/09/16 cloNIDine [Catapres] 0.3 mg PO Q8 01/27/17 Hypertension Review of Systems - Psychiatric Psychiatric: Other Mental Status Examination - Personal Presentation Personal Presentation: Looks stated age - Affect Affect: Other (Appropriate) - Motor Activity Motor Activity: Calm - Reliability in Providing Information Reliability in Providing Information: Fair - Speech Speech: Relevant - Mood Mood: Anxious - Formal Thought Process Formal Thought Process: No Impairment - Hallucinations/Delusions Hallucinations: Other (None reported) Delusions: Other - Obsessions/Compulsions Obsessions: None Compulsions: None - Cognitive Functions Orientation: Person, Place, Situation, Time Sensorium: Alert Attention/Concentration: Attentive Abstract Thinking: [place]oma Estimate of Intelligence: Average Judgement: Intact, as evidence by: Insight regarding need for hospitalization Memory: Recent intact, as evidence by: 3/3 object recall, Remote intact, as evidenced by: Ability to recall historical events - Risk Risk: Diminished functioning - Strength & Assets Inventory Strength & Assets Inventory: Family support, Cooperative - Limitations Limitations: Other DSM 5 DX - DSM 5 DSM 5 Diagnosis: Opioid use disorder severe Alcohol use disorder severe Cocaine use disorder - Recommended/Plan of Treatment Treatment Recommendations and Plan of Treatment: Patient education Supportive therapy We will start Subutex for opioid withdrawal and Librium detox protocol for alcohol withdrawal symptoms. Norvasc for hypertension. Other as needed medications. Projected ELOS: 4-5 days Discharge Plan and Discharge Criteria: Patient wants to go to [facility] after discharge from the hospital. - Smoking Cessation Smoking Cessation Initiated: Yes
[2017-03-30] MEDS ORDERED: traZODone 25 mg Tab PO PRN (22:32)
[2017-03-31] MEDS: Buprenorphine Hydrochloride 2 mg SL SCH (09:58)
[2017-03-31] MEDS: Multiple Vitamins Tab PO SCH (09:58)
--- NOTE | 2017-03-31 14:41 | PCM.PYCHPN ---
Psychiatric Progress Note - Psychiatric Progress Note Patient seen today, length of contact: 16 min Patient Chief Complaint: "My blood pressure is high" Problems Identified/Issues Discussed: This patient was seen, chart reviewed, and case discussed with staff. Patient reports poor sleep but otherwise reports improvement. He states mood is improved and reports limited withdrawal symptoms. He is worried about his blood pressure, which the nurse reported to him as being high. Patient is compliant with medications and denies any side effects. Symptoms are improving but need more time to stabilize. After care discussed, hopes to return [facility] and is considering maintenance therapy after. Support and psychoeducation given. Medication Change: Yes (Subutex/Librium taper ) Medical Record Reviewed: Yes Mental Status Examination - Cognitive Function Orientation: Person, Place, Situation, Time Memory: Intact Attention: Poor Concentration: Poor Association: WNL Fund of Knowledge: Poor - Mood Mood: Depressed, Anxious - Affect Affect: Constricted, Depressed - Speech Speech: Soft - Formal Thought Process Formal Thought Process: No Impairment - Suicidal Ideation Suicidal Ideation: No - Homicidal Ideation Homicidal Ideation: No Goal/Treatment Plan - Goal/Treatment Plan Need for Continued Stay: Remain at risks for inpatient hospitalization, Discharge may exacerbated symptoms, Severe functional impairment Progress Toward Problem(s) and Goals/Treatment Plan: Librium/Subutex detox Gabapentin for augmentation As needed medications Attend groups and activities Supportive therapy and psychoeducation AR for abstinence CBT for relapse prevention Encourage MAT Refer to rehab or IOP, and self-help groups.
[2017-04-01] MEDS: Buprenorphine Hydrochloride 2 mg SL SCH (09:09)
[2017-04-01] MEDS: Multiple Vitamins Tab PO SCH (09:09)
[2017-04-01] MEDS ORDERED: Influenza Vaccine 60 mcg/0.5 mL SYR (4YR UP) IM ONE (10:00)
[2017-04-01] MEDS ORDERED: Pneumococcal 23-Valent Vaccine IM ONE (10:00)
--- NOTE | 2017-04-01 14:53 | PCM.PYCHPN ---
Psychiatric Progress Note - Psychiatric Progress Note Patient seen today, length of contact: 15 min Patient Chief Complaint: "I'm not too good" Problems Identified/Issues Discussed: This patient was seen, chart reviewed, and case discussed with staff. Patient reports poor sleep due to roommate snoring heavily. He took medications and was able to return to sleep. He describes his mood as "alright," but he believes he is improving overall. He continues to report improving withdrawal symptoms, feeling "edgy, like my muscles are jumpy." Patient is compliant with medications and denies any side effects. Symptoms are improving but need more time to stabilize. After care discussed, support and psychoeducation given. Medication Change: Yes (Subutex/Librium taper ) Medical Record Reviewed: Yes Mental Status Examination - Cognitive Function Orientation: Person, Place, Situation, Time Memory: Intact Attention: WNL Concentration: WNL Association: WNL Fund of Knowledge: Poor - Mood Mood: Depressed, Anxious - Affect Affect: Constricted, Depressed - Speech Speech: Soft - Formal Thought Process Formal Thought Process: No Impairment - Suicidal Ideation Suicidal Ideation: No - Homicidal Ideation Homicidal Ideation: No Goal/Treatment Plan - Goal/Treatment Plan Need for Continued Stay: Remain at risks for inpatient hospitalization, Discharge may exacerbated symptoms, Severe functional impairment Progress Toward Problem(s) and Goals/Treatment Plan: Librium/Subutex detox Gabapentin for augmentation As needed medications Attend groups and activities Supportive therapy and psychoeducation AL for abstinence CBT for relapse prevention Encourage MAT Refer to rehab or IOP, and self-help groups. Estimated Date of D/C: 04/03/17
[2017-04-02] MEDS: Multiple Vitamins Tab PO SCH (10:01)
[2017-04-02] MEDS: Buprenorphine Hydrochloride 2 mg SL SCH (10:01)
--- NOTE | 2017-04-02 10:17 | PCM.PYCHPN ---
Psychiatric Progress Note - Psychiatric Progress Note Patient seen today, length of contact: 17 min Patient Chief Complaint: "I'm better" Problems Identified/Issues Discussed: This patient was seen, chart reviewed, and case discussed with staff. Patient reports improved sleep and mood compared to previous days. He denies any withdrawal symptoms. He offers no other complaints. He denies any feelings of depression or anxiety. He denies any auditory or visual hallucinations or any feelings of paranoia. He denies any suicidal or homicidal ideations. He continues to be social and freely leaves his room. Patient is compliant with medications and denies any side effects. Symptoms are improving but need more time to stabilize. After care discussed, support and psychoeducation given. Medication Change: Yes (Subutex/Librium taper ) Medical Record Reviewed: Yes Mental Status Examination - Cognitive Function Orientation: Person, Place, Situation, Time Memory: Intact Attention: WNL Concentration: Poor Association: WNL Fund of Knowledge: Poor - Mood Mood: Depressed - Affect Affect: Constricted, Depressed - Speech Speech: Soft - Formal Thought Process Formal Thought Process: No Impairment - Suicidal Ideation Suicidal Ideation: No - Homicidal Ideation Homicidal Ideation: No Goal/Treatment Plan - Goal/Treatment Plan Need for Continued Stay: Remain at risks for inpatient hospitalization, Discharge may exacerbated symptoms, Severe functional impairment Progress Toward Problem(s) and Goals/Treatment Plan: Librium/Subutex detox Gabapentin for augmentation As needed medications Attend groups and activities Supportive therapy and psychoeducation AL for abstinence CBT for relapse prevention Encourage MAT Refer to rehab or IOP, and self-help groups. Estimated Date of D/C: 04/03/17
[2017-04-02 20:46] VITALS: RESP 18
[2017-04-03] MEDS: Multiple Vitamins Tab PO SCH (09:41)
[2017-04-03 09:45] VITALS: BP 151/90; PULSE 64; TEMP 97.8; O2SAT 98
--- NOTE | 2017-04-03 09:59 | PCM.PYCHDC ---
Mental Status Examination - Mental Status Examination Orientation: Person, Place, Situation, Time Memory: Intact Mood: Anxious Affect: Broad Speech: Appropriate Attention: WNL Concentration: WNL Association: WNL Fund of Knowledge: WNL Formal Thought Process: No Impairment Suicidal Ideation: No Current Homicidal Ideation?: No Discharge Summary - Discharge Note Reason for Hospitalization: Heroin/Alcohol detox Psychiatric History (includes Medical, Family, Personal Hx): denies Consultations:: List each consultation separately and include: 1. Reason for request. 2. Findings. 3. Follow-up Summary of Hospital Course include:: 1. Description of specific treatment plan utilized for patients during their course of treatmen. 2. Summarize the time- course for resolution of acute symptoms and/or regressed behaviors. 3. Describe issues identified and worked on during hospitalization. 4. Describe medication utilized. 5. Describe medical problems identified and treated. 6. Reassessment of suicide risk Summary of Hospital Course: On admission: Patient is a 61 years old, , on disability, male with no previous psychiatric history was admitted for retreatment of withdrawing from heroin, alcohol and cocaine. Patient reported started using heroin 25 years ago increase gradually up to about 14 bags daily, sniffing. Currently using 7-8 packs daily. History of 3 previous detox at [facility] and [facility] rehab. His last use of heroin was 2 days ago. Longest period of abstinence was 6 month in 2012 when patient was in rehab. Patient was in [facility] re[facility]. Also started drinking alcohol at 9 years of age, increase gradually up to half to 2 pints of hard liquor daily. Last use reported Friday. Longest period of abstinence was 6 months in 2012. Also started using cocaine at 21 years of age. Was using $20 of cocaine daily, smoking. Last use was 2 days ago. Also smoking 1 pack of cigarettes daily and wants nicotine patch. Patient was born in [place], has seventh grade of education, not working since 1997, on disability. Was driving a delivery truck. He is and has 9 grownup children from one . Patient lives with his sister. Patient has history of shoplifting and was arrested in the past. Hospital course: The patient was admitted and started on treatment with psychotherapy, support, psychoeducation, and medications. DE and CBT used. Patient attended groups and activities, as well as milieu therapy. All the risks and benefits of medications are discussed, and the patient understood and agreed. Patient improved with the treatments provided. After care discussed with the patient. - Final Diagnosis (DSM 5) Condition upon Discharge: GOOD DSM 5: Opioid use disorder severe Alcohol use disorder severe Cocaine use disorder Disposition: HOME/ ROUTINE Follow-up Treatment Plan: Continue below medications after discharge Follow after care plan as discussed Use relapse prevention skills Return to ER or call 911 if suicidal, homicidal, or if symptoms relapse Stay away from stress, alcohol, and drugs See primary doctor regularly and get labs Prescriptions/Medication Reconciliation: amLODIPine [Norvasc] 5 mg PO DAILY #30 tab QUEtiapine [Seroquel] 100 mg PO HS #30 tab traZODone [Desyrel] 100 mg PO HS PRN #30 tab PRN Reason: Insomnia
== END 2017-04-03 10:05 | disposition home or self-care (01) | DRG 745 ==
LOC: C.ER 13:44 → C.7D 15:00
PROVIDERS: ADMIT Psychiatry & Neurology Psychiatry; ATTEND Psychiatry & Neurology Psychiatry
PROC: HZ2ZZZZ Detoxification Services for Substance Abuse Treatment (ICD-10-PCS; principal; 2017-03-29)
PROC: HZ52ZZZ Individual Psychotherapy for Substance Abuse Treatment, Cognitive-Behavioral (ICD-10-PCS; 2017-03-29)
PROC: HZ59ZZZ Individual Psychotherapy for Substance Abuse Treatment, Supportive (ICD-10-PCS; 2017-03-29)
PROC: HZ56ZZZ Individual Psychotherapy for Substance Abuse Treatment, Psychoeducation (ICD-10-PCS; 2017-03-29)
DX: F11.23 Opioid dependence with withdrawal (principal); F10.230 Alcohol dependence with withdrawal, uncomplicated; F14.10 Cocaine abuse, uncomplicated